=== PATIENT | female | born 1950 | race Caucasian/White ===

== ENCOUNTER 2020-04-13 11:51 | Inpatient (IN) ==
[2020-04-13] MEDS: Sennosides/Docusate Sodium TABLET PO SCH (20:13)
[2020-04-13] MEDS: traZODone 50 MG TABLET PO SCH (20:13)
[2020-04-13] MEDS: Gabapentin 300 MG CAPSULE PO SCH (20:13)
[2020-04-13] MEDS: Insulin LISPRO 300 UNITS/3 ML VIAL SUBQ SCH (20:13)
[2020-04-13] MEDS ORDERED: [UNRECOGNIZED DRUG - OTHER] SQ SCH (21:00)
[2020-04-13] MEDS ORDERED: INSULIN GLARGINE HUM REC ANLOG U SQ SCH (21:00)
[2020-04-14 07:10] LABS: Hematocrit 25.2 % (35.3-44.9); Hemoglobin 7.4 g/dL (11.5-15.4); Immature Granulocytes % 0.4 % (0-4); Lymphocytes # 0.4 K/mcL (0.6-4.6); Lymphocytes % 15.4 %; Mean Corpuscular HGB Conc 29.4 g/dL (31.6-35.5); Mean Corpuscular Hemoglobin 24.3 pg (28.0-33.3); Mean Corpuscular Volume 82.9 fL (83.0-100.0); Mean Platelet Volume 9.5 fL (9.4-12.4); Monocytes # 0.3 K/mcL (0.0-1.3); Monocytes % 12.9 %; Neutrophils # 1.7 K/mcL (1.6-8.9); Platelet Count 139 K/mcL (140-400); Red Blood Count 3.04 M/mcL (3.82-4.97); Red Cell Distribution Width 14.6 % (11.5-14.5); Segmented Neutrophils % 71.3 %; White Blood Count 2.4 K/mcL (4.3-11.1)
[2020-04-14 07:43] LABS: BUN/Creatinine Ratio 39 (6-26); Blood Urea Nitrogen 26 mg/dL (8-23); Calcium 8.3 mg/dL (8.6-10.3); Carbon Dioxide 33 mEq/L (23-29); Chloride 99 mEq/L (98-107); Glucose 145 mg/dL (70-105); Osmolality,Calculated 291 (280-300); Potassium 4.1 mEq/L (3.5-5.1); Sodium 137 mEq/L (136-145); eGFR For African Americans > 60 (> 60); eGFR For Non-African Americans > 60 (> 60)
[2020-04-14] MEDS: Insulin LISPRO 300 UNITS/3 ML VIAL SUBQ SCH ×4 (08:30→19:59)
[2020-04-14] MEDS: Metoprolol XL (24 HR) Succ 50 MG TAB.ER.24H PO SCH (08:42)
[2020-04-14] MEDS: Cyanocobalamin (B-12) 1,000 MCG TABLET PO SCH (08:43)
[2020-04-14] MEDS: DilTIAZem CD (24hr) 180 MG CAP.ER.24H PO SCH (08:43)
[2020-04-14] MEDS: Sennosides/Docusate Sodium TABLET PO SCH ×2 (08:43→20:05)
[2020-04-14] MEDS ORDERED: Metoprolol XL (24 HR) Succ 25 MG TAB.ER.24H PO SCH (09:00)
[2020-04-14] MEDS ORDERED: Aspirin Enteric Coated 325 MG Tablet PO SCH (09:00)
[2020-04-14] MEDS ORDERED: clonazePAM 0.5 MG TABLET PO SCH (09:00)
[2020-04-14] MEDS: *HR* OxyCODONE Immed Rel 5 MG TABLET PO PRN ×3 (12:22→23:50)
[2020-04-14] MEDS: traZODone 50 MG TABLET PO SCH (20:05)
[2020-04-14] MEDS: Gabapentin 300 MG CAPSULE PO SCH (20:05)
[2020-04-15] MEDS: *HR* OxyCODONE Immed Rel 5 MG TABLET PO PRN (04:25)
[2020-04-15] MEDS: *HR* Enoxaparin 40 MG/0.4 ML SYRINGE SQ SCH (06:29)
[2020-04-15] MEDS: Metoprolol XL (24 HR) Succ 50 MG TAB.ER.24H PO SCH (08:18)
[2020-04-15] MEDS: Aspirin Enteric Coated 81 MG Tablet PO SCH (08:18)
[2020-04-15] MEDS: Insulin LISPRO 300 UNITS/3 ML VIAL SUBQ SCH ×4 (08:18→21:10)
[2020-04-15] MEDS: DilTIAZem CD (24hr) 180 MG CAP.ER.24H PO SCH (08:19)
[2020-04-15] MEDS: Cyanocobalamin (B-12) 1,000 MCG TABLET PO SCH (08:19)
[2020-04-15] MEDS: Sennosides/Docusate Sodium TABLET PO SCH ×2 (08:19→21:10)
[2020-04-15] MEDS: Acetaminophen 325 MG TABLET PO PRN (10:37)
[2020-04-15] MEDS: *HR* HYDROcodone/Acet 5/325 mg TABLET PO PRN (11:38)
[2020-04-15] MEDS ORDERED: clonazePAM 0.5 MG TABLET PO SCH (21:00)
[2020-04-15] MEDS: Gabapentin 300 MG CAPSULE PO SCH (21:10)
[2020-04-15] MEDS: traZODone 50 MG TABLET PO SCH (21:11)
[2020-04-16] MEDS: *HR* HYDROcodone/Acet 5/325 mg TABLET PO PRN ×3 (05:02→17:37)
[2020-04-16] MEDS: *HR* Enoxaparin 40 MG/0.4 ML SYRINGE SQ SCH (06:48)
[2020-04-16] MEDS: Insulin LISPRO 300 UNITS/3 ML VIAL SUBQ SCH ×4 (08:24→20:39)
[2020-04-16] MEDS: DilTIAZem CD (24hr) 180 MG CAP.ER.24H PO SCH (08:25)
[2020-04-16] MEDS: Sennosides/Docusate Sodium TABLET PO SCH ×2 (08:25→20:38)
[2020-04-16] MEDS: Aspirin Enteric Coated 81 MG Tablet PO SCH (08:25)
[2020-04-16] MEDS: Metoprolol XL (24 HR) Succ 50 MG TAB.ER.24H PO SCH (08:25)
[2020-04-16] MEDS: Cyanocobalamin (B-12) 1,000 MCG TABLET PO SCH (08:26)
[2020-04-16] MEDS: traZODone 50 MG TABLET PO SCH (20:37)
[2020-04-16] MEDS: Gabapentin 300 MG CAPSULE PO SCH (20:37)
[2020-04-16] MEDS: clonazePAM 0.5 MG TABLET PO SCH (20:37)
[2020-04-17] MEDS: *HR* HYDROcodone/Acet 5/325 mg TABLET PO PRN ×3 (00:21→16:32)
[2020-04-17] MEDS: *HR* Enoxaparin 40 MG/0.4 ML SYRINGE SQ SCH (06:38)
[2020-04-17] MEDS: Insulin LISPRO 300 UNITS/3 ML VIAL SUBQ SCH ×4 (07:55→21:51)
[2020-04-17] MEDS: DilTIAZem CD (24hr) 180 MG CAP.ER.24H PO SCH (08:24)
[2020-04-17] MEDS: Aspirin Enteric Coated 81 MG Tablet PO SCH (08:24)
[2020-04-17] MEDS: Cyanocobalamin (B-12) 1,000 MCG TABLET PO SCH (08:24)
[2020-04-17] MEDS: Metoprolol XL (24 HR) Succ 50 MG TAB.ER.24H PO SCH (08:25)
[2020-04-17] MEDS: Sennosides/Docusate Sodium TABLET PO SCH ×2 (08:32→21:51)
[2020-04-17] MEDS: Acetaminophen 325 MG TABLET PO PRN (11:17)
[2020-04-17] MEDS: Gabapentin 300 MG CAPSULE PO SCH (21:51)
[2020-04-17] MEDS: clonazePAM 0.5 MG TABLET PO SCH (21:51)
[2020-04-17] MEDS: traZODone 50 MG TABLET PO SCH (21:51)
[2020-04-18] MEDS: *HR* HYDROcodone/Acet 5/325 mg TABLET PO PRN ×2 (02:58→10:21)
[2020-04-18] MEDS: *HR* Enoxaparin 40 MG/0.4 ML SYRINGE SQ SCH (06:03)
[2020-04-18] MEDS: Insulin LISPRO 300 UNITS/3 ML VIAL SUBQ SCH ×4 (07:21→20:31)
[2020-04-18] MEDS: Sennosides/Docusate Sodium TABLET PO SCH ×2 (07:51→22:13)
[2020-04-18] MEDS: Cyanocobalamin (B-12) 1,000 MCG TABLET PO SCH (07:51)
[2020-04-18] MEDS: Acetaminophen 325 MG TABLET PO PRN (07:51)
[2020-04-18] MEDS: Metoprolol XL (24 HR) Succ 50 MG TAB.ER.24H PO SCH (07:51)
[2020-04-18] MEDS: Aspirin Enteric Coated 81 MG Tablet PO SCH (07:52)
[2020-04-18] MEDS: DilTIAZem CD (24hr) 180 MG CAP.ER.24H PO SCH (07:52)
[2020-04-18] MEDS: *HR* HYDROcodone/Acet 7.5/325 mg TABLET PO PRN (14:22)
[2020-04-18 14:36] LABS: Hemoglobin 8.2 g/dL (11.5-15.4); Mean Corpuscular HGB Conc 29.3 g/dL (31.6-35.5); Mean Corpuscular Hemoglobin 24.3 pg (28.0-33.3); Mean Corpuscular Volume 82.8 fL (83.0-100.0); Mean Platelet Volume 8.7 fL (9.4-12.4); Platelet Count 205 K/mcL (140-400); Red Blood Count 3.38 M/mcL (3.82-4.97); Red Cell Distribution Width 14.7 % (11.5-14.5); White Blood Count 3.4 K/mcL (4.3-11.1)
[2020-04-18 14:53] LABS: BUN/Creatinine Ratio 29 (6-26); Blood Urea Nitrogen 24 mg/dL (8-23); Calcium 8.5 mg/dL (8.6-10.3); Carbon Dioxide 28 mEq/L (23-29); Chloride 101 mEq/L (98-107); Glucose 154 mg/dL (70-105); Osmolality,Calculated 291 (280-300); Potassium 4.3 mEq/L (3.5-5.1); Sodium 137 mEq/L (136-145); eGFR For African Americans > 60 (> 60); eGFR For Non-African Americans > 60 (> 60)
[2020-04-18] MEDS: traZODone 50 MG TABLET PO SCH (22:13)
[2020-04-18] MEDS: Gabapentin 300 MG CAPSULE PO SCH (22:13)
[2020-04-18] MEDS: clonazePAM 0.5 MG TABLET PO SCH (22:13)
[2020-04-19] MEDS: *HR* HYDROcodone/Acet 7.5/325 mg TABLET PO PRN ×4 (00:37→20:55)
[2020-04-19] MEDS: *HR* Enoxaparin 40 MG/0.4 ML SYRINGE SQ SCH (05:53)
[2020-04-19] MEDS: Insulin LISPRO 300 UNITS/3 ML VIAL SUBQ SCH ×4 (08:26→20:34)
[2020-04-19] MEDS: Metoprolol XL (24 HR) Succ 50 MG TAB.ER.24H PO SCH (08:30)
[2020-04-19] MEDS: Sennosides/Docusate Sodium TABLET PO SCH ×2 (08:30→20:55)
[2020-04-19] MEDS: Aspirin Enteric Coated 81 MG Tablet PO SCH (08:30)
[2020-04-19] MEDS: DilTIAZem CD (24hr) 180 MG CAP.ER.24H PO SCH (08:30)
[2020-04-19] MEDS: Cyanocobalamin (B-12) 1,000 MCG TABLET PO SCH (08:31)
[2020-04-19] MEDS: traZODone 50 MG TABLET PO SCH (20:55)
[2020-04-19] MEDS: Gabapentin 300 MG CAPSULE PO SCH (20:55)
[2020-04-19] MEDS: clonazePAM 0.5 MG TABLET PO SCH (20:55)
[2020-04-20] MEDS: *HR* HYDROcodone/Acet 7.5/325 mg TABLET PO PRN ×5 (03:00→22:05)
[2020-04-20] MEDS: *HR* Enoxaparin 40 MG/0.4 ML SYRINGE SQ SCH (06:32)
[2020-04-20] MEDS: Insulin LISPRO 300 UNITS/3 ML VIAL SUBQ SCH ×4 (07:41→22:06)
[2020-04-20] MEDS: DilTIAZem CD (24hr) 180 MG CAP.ER.24H PO SCH (07:47)
[2020-04-20] MEDS: Metoprolol XL (24 HR) Succ 50 MG TAB.ER.24H PO SCH (07:47)
[2020-04-20] MEDS: Aspirin Enteric Coated 81 MG Tablet PO SCH (07:47)
[2020-04-20] MEDS: Sennosides/Docusate Sodium TABLET PO SCH ×2 (07:47→22:05)
[2020-04-20] MEDS: Cyanocobalamin (B-12) 1,000 MCG TABLET PO SCH (07:51)
[2020-04-20] MEDS: methocarbamoL 500 MG TABLET PO PRN (17:32)
[2020-04-20] MEDS: Gabapentin 300 MG CAPSULE PO SCH (22:05)
[2020-04-20] MEDS: clonazePAM 0.5 MG TABLET PO SCH (22:05)
[2020-04-20] MEDS: traZODone 50 MG TABLET PO SCH (22:06)
[2020-04-21] MEDS: *HR* Enoxaparin 40 MG/0.4 ML SYRINGE SQ SCH (05:17)
[2020-04-21] MEDS: Insulin LISPRO 300 UNITS/3 ML VIAL SUBQ SCH ×4 (07:58→20:00)
[2020-04-21] MEDS: DilTIAZem CD (24hr) 180 MG CAP.ER.24H PO SCH (08:12)
[2020-04-21] MEDS: Metoprolol XL (24 HR) Succ 50 MG TAB.ER.24H PO SCH (08:12)
[2020-04-21] MEDS: Cyanocobalamin (B-12) 1,000 MCG TABLET PO SCH (08:12)
[2020-04-21] MEDS: Aspirin Enteric Coated 81 MG Tablet PO SCH (08:13)
[2020-04-21] MEDS: methocarbamoL 500 MG TABLET PO PRN ×3 (08:13→23:49)
[2020-04-21] MEDS: Sennosides/Docusate Sodium TABLET PO SCH ×2 (08:13→19:59)
[2020-04-21] MEDS: *HR* HYDROcodone/Acet 7.5/325 mg TABLET PO PRN ×4 (10:11→23:49)
[2020-04-21] MEDS: Acetaminophen 325 MG TABLET PO PRN ×2 (12:20→18:14)
[2020-04-21] MEDS: traZODone 50 MG TABLET PO SCH (19:59)
[2020-04-21] MEDS: Gabapentin 300 MG CAPSULE PO SCH (19:59)
[2020-04-21] MEDS: clonazePAM 0.5 MG TABLET PO SCH (23:49)
[2020-04-22] MEDS: *HR* Enoxaparin 40 MG/0.4 ML SYRINGE SQ SCH (05:50)
[2020-04-22] MEDS: *HR* HYDROcodone/Acet 7.5/325 mg TABLET PO PRN ×4 (05:50→18:43)
[2020-04-22] MEDS: Insulin LISPRO 300 UNITS/3 ML VIAL SUBQ SCH ×4 (07:54→20:33)
[2020-04-22] MEDS: Aspirin Enteric Coated 81 MG Tablet PO SCH (08:07)
[2020-04-22] MEDS: DilTIAZem CD (24hr) 180 MG CAP.ER.24H PO SCH (08:07)
[2020-04-22] MEDS: Cyanocobalamin (B-12) 1,000 MCG TABLET PO SCH (08:08)
[2020-04-22] MEDS: Acetaminophen 325 MG TABLET PO PRN ×3 (08:08→21:46)
[2020-04-22] MEDS: Metoprolol XL (24 HR) Succ 50 MG TAB.ER.24H PO SCH (08:08)
[2020-04-22] MEDS: methocarbamoL 500 MG TABLET PO PRN ×2 (08:08→16:54)
[2020-04-22] MEDS: Sennosides/Docusate Sodium TABLET PO SCH ×2 (08:11→21:45)
[2020-04-22] MEDS: traZODone 50 MG TABLET PO SCH (21:45)
[2020-04-22] MEDS: Gabapentin 300 MG CAPSULE PO SCH (21:46)
[2020-04-22] MEDS: clonazePAM 0.5 MG TABLET PO SCH (22:55)
[2020-04-23] MEDS: *HR* HYDROcodone/Acet 7.5/325 mg TABLET PO PRN ×4 (01:56→17:18)
[2020-04-23] MEDS: methocarbamoL 500 MG TABLET PO PRN ×3 (01:56→20:52)
[2020-04-23] MEDS: *HR* Enoxaparin 40 MG/0.4 ML SYRINGE SQ SCH (06:06)
[2020-04-23] MEDS: Acetaminophen 325 MG TABLET PO PRN ×2 (06:06→20:58)
[2020-04-23 07:25] LABS: Hematocrit 26.1 % (35.3-44.9); Hemoglobin 7.7 g/dL (11.5-15.4); Mean Corpuscular HGB Conc 29.5 g/dL (31.6-35.5); Mean Corpuscular Hemoglobin 24.2 pg (28.0-33.3); Mean Corpuscular Volume 82.1 fL (83.0-100.0); Mean Platelet Volume 8.8 fL (9.4-12.4); Platelet Count 166 K/mcL (140-400); Red Blood Count 3.18 M/mcL (3.82-4.97); Red Cell Distribution Width 14.5 % (11.5-14.5); White Blood Count 2.5 K/mcL (4.3-11.1)
[2020-04-23 07:46] LABS: BUN/Creatinine Ratio 39 (6-26); Blood Urea Nitrogen 22 mg/dL (8-23); Calcium 8.3 mg/dL (8.6-10.3); Carbon Dioxide 28 mEq/L (23-29); Chloride 106 mEq/L (98-107); Glucose 109 mg/dL (70-105); Osmolality,Calculated 292 (280-300); Potassium 4.2 mEq/L (3.5-5.1); Sodium 139 mEq/L (136-145); eGFR For African Americans > 60 (> 60); eGFR For Non-African Americans > 60 (> 60)
[2020-04-23] MEDS: Insulin LISPRO 300 UNITS/3 ML VIAL SUBQ SCH ×4 (08:11→20:53)
[2020-04-23] MEDS: Cyanocobalamin (B-12) 1,000 MCG TABLET PO SCH (08:16)
[2020-04-23] MEDS: Metoprolol XL (24 HR) Succ 50 MG TAB.ER.24H PO SCH (08:16)
[2020-04-23] MEDS: Sennosides/Docusate Sodium TABLET PO SCH ×2 (08:16→20:52)
[2020-04-23] MEDS: Aspirin Enteric Coated 81 MG Tablet PO SCH (08:17)
[2020-04-23] MEDS: DilTIAZem CD (24hr) 180 MG CAP.ER.24H PO SCH (08:17)
[2020-04-23] MEDS: traZODone 50 MG TABLET PO SCH (20:52)
[2020-04-23] MEDS: Gabapentin 300 MG CAPSULE PO SCH (20:52)
[2020-04-23] MEDS: clonazePAM 0.5 MG TABLET PO SCH (22:25)
[2020-04-24] MEDS: *HR* HYDROcodone/Acet 7.5/325 mg TABLET PO PRN ×5 (00:17→20:31)
[2020-04-24] MEDS: Acetaminophen 325 MG TABLET PO PRN (03:01)
[2020-04-24] MEDS: *HR* Enoxaparin 40 MG/0.4 ML SYRINGE SQ SCH (05:47)
[2020-04-24 06:40] LABS: Hematocrit 28.2 % (35.3-44.9); Hemoglobin 8.3 g/dL (11.5-15.4); Lymphocytes % 17.7 %; Mean Corpuscular HGB Conc 29.4 g/dL (31.6-35.5); Mean Corpuscular Hemoglobin 24.1 pg (28.0-33.3); Mean Platelet Volume 9.2 fL (9.4-12.4); Monocytes # 0.3 K/mcL (0.0-1.3); Monocytes % 9.5 %; Neutrophils # 2.2 K/mcL (1.6-8.9); Platelet Count 220 K/mcL (140-400); Red Blood Count 3.44 M/mcL (3.82-4.97); Red Cell Distribution Width 14.6 % (11.5-14.5); Segmented Neutrophils % 71.8 %; White Blood Count 3.1 K/mcL (4.3-11.1)
[2020-04-24 07:13] LABS: Lymphocytes # 0.6 K/mcL (0.6-4.6)
[2020-04-24 07:14] LABS: BUN/Creatinine Ratio 35 (6-26); Blood Urea Nitrogen 16 mg/dL (8-23); Calcium 8.4 mg/dL (8.6-10.3); Carbon Dioxide 28 mEq/L (23-29); Chloride 106 mEq/L (98-107); Glucose 113 mg/dL (70-105); Osmolality,Calculated 290 (280-300); Potassium 3.8 mEq/L (3.5-5.1); Sodium 139 mEq/L (136-145); eGFR For African Americans > 60 (> 60); eGFR For Non-African Americans > 60 (> 60)
[2020-04-24] MEDS: Insulin LISPRO 300 UNITS/3 ML VIAL SUBQ SCH ×4 (08:26→20:31)
[2020-04-24] MEDS: Sennosides/Docusate Sodium TABLET PO SCH ×2 (08:33→20:30)
[2020-04-24] MEDS: Metoprolol XL (24 HR) Succ 50 MG TAB.ER.24H PO SCH (08:34)
[2020-04-24] MEDS: Aspirin Enteric Coated 81 MG Tablet PO SCH (08:34)
[2020-04-24] MEDS: DilTIAZem CD (24hr) 180 MG CAP.ER.24H PO SCH (08:36)
[2020-04-24] MEDS: Cyanocobalamin (B-12) 1,000 MCG TABLET PO SCH (08:36)
[2020-04-24 09:07] LABS: % Iron Saturation 6 % (15-50); Iron 18 mcg/dL (50-170); Transferrin 221 mg/dL (203-362)
[2020-04-24 09:25] LABS: Ferritin 32 ng/mL (10-120)
[2020-04-24 09:30] LABS: Folate 17.4 ng/mL (3.0-16.0)
[2020-04-24] MEDS: methocarbamoL 500 MG TABLET PO PRN ×2 (12:26→20:31)
[2020-04-24] MEDS: traZODone 50 MG TABLET PO SCH (20:30)
[2020-04-24] MEDS: Gabapentin 300 MG CAPSULE PO SCH (20:31)
[2020-04-24] MEDS: clonazePAM 0.5 MG TABLET PO SCH (20:32)
[2020-04-25] MEDS: *HR* Enoxaparin 40 MG/0.4 ML SYRINGE SQ SCH (06:43)
[2020-04-25] MEDS: methocarbamoL 500 MG TABLET PO PRN ×3 (06:43→22:35)
[2020-04-25] MEDS: *HR* HYDROcodone/Acet 7.5/325 mg TABLET PO PRN ×4 (06:43→21:10)
[2020-04-25] MEDS: Insulin LISPRO 300 UNITS/3 ML VIAL SUBQ SCH ×4 (07:36→19:58)
[2020-04-25] MEDS: Metoprolol XL (24 HR) Succ 50 MG TAB.ER.24H PO SCH (07:41)
[2020-04-25] MEDS: Sennosides/Docusate Sodium TABLET PO SCH ×2 (07:41→20:02)
[2020-04-25] MEDS: Cyanocobalamin (B-12) 1,000 MCG TABLET PO SCH (07:42)
[2020-04-25] MEDS: Aspirin Enteric Coated 81 MG Tablet PO SCH (07:42)
[2020-04-25] MEDS: DilTIAZem CD (24hr) 180 MG CAP.ER.24H PO SCH (07:42)
[2020-04-25] MEDS: Acetaminophen 325 MG TABLET PO PRN (14:24)
[2020-04-25] MEDS: traZODone 50 MG TABLET PO SCH (21:09)
[2020-04-25] MEDS: Gabapentin 300 MG CAPSULE PO SCH (21:09)
[2020-04-25] MEDS: clonazePAM 0.5 MG TABLET PO SCH (22:35)
[2020-04-26] MEDS: *HR* HYDROcodone/Acet 7.5/325 mg TABLET PO PRN ×4 (03:52→18:22)
[2020-04-26] MEDS: methocarbamoL 500 MG TABLET PO PRN ×3 (06:35→23:08)
[2020-04-26] MEDS: *HR* Enoxaparin 40 MG/0.4 ML SYRINGE SQ SCH (06:36)
[2020-04-26] MEDS: Insulin LISPRO 300 UNITS/3 ML VIAL SUBQ SCH ×4 (07:25→21:23)
[2020-04-26] MEDS: Aspirin Enteric Coated 81 MG Tablet PO SCH (09:01)
[2020-04-26] MEDS: DilTIAZem CD (24hr) 180 MG CAP.ER.24H PO SCH (09:01)
[2020-04-26] MEDS: Metoprolol XL (24 HR) Succ 50 MG TAB.ER.24H PO SCH (09:01)
[2020-04-26] MEDS: Cyanocobalamin (B-12) 1,000 MCG TABLET PO SCH (09:01)
[2020-04-26] MEDS: Sennosides/Docusate Sodium TABLET PO SCH ×2 (09:06→21:25)
[2020-04-26 10:21] LABS: Hematocrit 29.4 % (35.3-44.9); Hemoglobin 8.4 g/dL (11.5-15.4); Immature Granulocytes % 0.3 % (0-4); Lymphocytes # 0.5 K/mcL (0.6-4.6); Lymphocytes % 15.9 %; Mean Corpuscular HGB Conc 28.6 g/dL (31.6-35.5); Mean Corpuscular Hemoglobin 23.5 pg (28.0-33.3); Mean Corpuscular Volume 82.4 fL (83.0-100.0); Mean Platelet Volume 8.9 fL (9.4-12.4); Monocytes # 0.3 K/mcL (0.0-1.3); Monocytes % 7.8 %; Neutrophils # 2.4 K/mcL (1.6-8.9); Platelet Count 221 K/mcL (140-400); Red Blood Count 3.57 M/mcL (3.82-4.97); Red Cell Distribution Width 14.5 % (11.5-14.5); White Blood Count 3.2 K/mcL (4.3-11.1)
[2020-04-26 10:35] LABS: BUN/Creatinine Ratio 33 (6-26); Blood Urea Nitrogen 20 mg/dL (8-23); Calcium 8.5 mg/dL (8.6-10.3); Carbon Dioxide 27 mEq/L (23-29); Chloride 105 mEq/L (98-107); Glucose 175 mg/dL (70-105); Osmolality,Calculated 293 (280-300); Potassium 3.8 mEq/L (3.5-5.1); Sodium 138 mEq/L (136-145); eGFR For African Americans > 60 (> 60); eGFR For Non-African Americans > 60 (> 60)
[2020-04-26 10:47] LABS: Hypochromasia Present (Not Present); Microcytosis Present (Not Present)
[2020-04-26] MEDS: Iron Sucrose Complex 200 MG in 0.9 % Sodium Chloride 100 ML IVPB SCH (11:09)
[2020-04-26] MEDS: Gabapentin 300 MG CAPSULE PO SCH (21:40)
[2020-04-26] MEDS: traZODone 50 MG TABLET PO SCH (21:40)
[2020-04-26] MEDS: clonazePAM 0.5 MG TABLET PO SCH (23:08)
[2020-04-27] MEDS: *HR* HYDROcodone/Acet 7.5/325 mg TABLET PO PRN ×4 (03:48→20:09)
[2020-04-27] MEDS: *HR* Enoxaparin 40 MG/0.4 ML SYRINGE SQ SCH (05:52)
[2020-04-27] MEDS: Metoprolol XL (24 HR) Succ 50 MG TAB.ER.24H PO SCH (07:33)
[2020-04-27] MEDS: Sennosides/Docusate Sodium TABLET PO SCH ×2 (07:34→20:04)
[2020-04-27] MEDS: Aspirin Enteric Coated 81 MG Tablet PO SCH (07:34)
[2020-04-27] MEDS: DilTIAZem CD (24hr) 180 MG CAP.ER.24H PO SCH (07:34)
[2020-04-27] MEDS: Cyanocobalamin (B-12) 1,000 MCG TABLET PO SCH (07:36)
[2020-04-27] MEDS: methocarbamoL 500 MG TABLET PO PRN ×2 (07:40→22:32)
[2020-04-27] MEDS: Insulin LISPRO 300 UNITS/3 ML VIAL SUBQ SCH ×4 (09:27→20:02)
[2020-04-27] MEDS: Iron Sucrose Complex 200 MG in 0.9 % Sodium Chloride 100 ML IVPB SCH (10:02)
[2020-04-27] MEDS: traZODone 50 MG TABLET PO SCH (20:09)
[2020-04-27] MEDS: Gabapentin 300 MG CAPSULE PO SCH (20:09)
[2020-04-27] MEDS: clonazePAM 0.5 MG TABLET PO SCH (22:32)
[2020-04-28] MEDS: *HR* Enoxaparin 40 MG/0.4 ML SYRINGE SQ SCH (06:03)
[2020-04-28] MEDS: *HR* HYDROcodone/Acet 7.5/325 mg TABLET PO PRN ×4 (06:19→21:31)
[2020-04-28] MEDS: Insulin LISPRO 300 UNITS/3 ML VIAL SUBQ SCH ×4 (09:04→21:07)
[2020-04-28] MEDS: DilTIAZem CD (24hr) 180 MG CAP.ER.24H PO SCH (09:11)
[2020-04-28] MEDS: Sennosides/Docusate Sodium TABLET PO SCH ×2 (09:11→21:09)
[2020-04-28] MEDS: Cyanocobalamin (B-12) 1,000 MCG TABLET PO SCH (09:11)
[2020-04-28] MEDS: Aspirin Enteric Coated 81 MG Tablet PO SCH (09:11)
[2020-04-28] MEDS: methocarbamoL 500 MG TABLET PO PRN ×2 (09:11→21:08)
[2020-04-28] MEDS: Iron Sucrose Complex 200 MG in 0.9 % Sodium Chloride 100 ML IVPB SCH (09:12)
[2020-04-28] MEDS: Acetaminophen 325 MG TABLET PO PRN (09:12)
[2020-04-28] MEDS: Metoprolol XL (24 HR) Succ 50 MG TAB.ER.24H PO SCH (09:12)
[2020-04-28] MEDS: traZODone 50 MG TABLET PO SCH (21:08)
[2020-04-28] MEDS: Gabapentin 300 MG CAPSULE PO SCH (21:08)
[2020-04-28] MEDS: clonazePAM 0.5 MG TABLET PO SCH (23:38)
[2020-04-29] MEDS: *HR* HYDROcodone/Acet 7.5/325 mg TABLET PO PRN ×4 (03:52→21:12)
[2020-04-29] MEDS: *HR* Enoxaparin 40 MG/0.4 ML SYRINGE SQ SCH (06:23)
[2020-04-29] MEDS: Insulin LISPRO 300 UNITS/3 ML VIAL SUBQ SCH ×4 (07:33→21:11)
[2020-04-29] MEDS: Cyanocobalamin (B-12) 1,000 MCG TABLET PO SCH (09:04)
[2020-04-29] MEDS: Sennosides/Docusate Sodium TABLET PO SCH ×2 (09:05→21:12)
[2020-04-29] MEDS: DilTIAZem CD (24hr) 180 MG CAP.ER.24H PO SCH (09:05)
[2020-04-29] MEDS: methocarbamoL 500 MG TABLET PO PRN ×2 (09:06→21:12)
[2020-04-29] MEDS: Aspirin Enteric Coated 81 MG Tablet PO SCH (09:06)
[2020-04-29] MEDS: Metoprolol XL (24 HR) Succ 50 MG TAB.ER.24H PO SCH (09:06)
[2020-04-29 19:34] VITALS: BP 157/79
[2020-04-29] MEDS: traZODone 50 MG TABLET PO SCH (21:12)
[2020-04-29] MEDS: clonazePAM 0.5 MG TABLET PO SCH (21:12)
[2020-04-29] MEDS: Gabapentin 300 MG CAPSULE PO SCH (21:12)
[2020-04-30] MEDS: methocarbamoL 500 MG TABLET PO PRN (05:40)
[2020-04-30] MEDS: *HR* HYDROcodone/Acet 7.5/325 mg TABLET PO PRN (05:40)
[2020-04-30] MEDS: *HR* Enoxaparin 40 MG/0.4 ML SYRINGE SQ SCH (05:40)
[2020-04-30] MEDS: Insulin LISPRO 300 UNITS/3 ML VIAL SUBQ SCH (07:26)
[2020-04-30] MEDS: Aspirin Enteric Coated 81 MG Tablet PO SCH (09:13)
[2020-04-30] MEDS: Cyanocobalamin (B-12) 1,000 MCG TABLET PO SCH (09:13)
[2020-04-30] MEDS: DilTIAZem CD (24hr) 180 MG CAP.ER.24H PO SCH (09:13)
[2020-04-30] MEDS: Metoprolol XL (24 HR) Succ 50 MG TAB.ER.24H PO SCH (09:13)
[2020-04-30] MEDS: Sennosides/Docusate Sodium TABLET PO SCH (09:14)
== END 2020-04-30 11:33 | disposition home health service (06) | DRG 560 ==
LOC: INPPIK → OBSVTOIN 17:09
PROVIDERS: ADMIT Family Medicine; ATTEND Family Medicine